=== PATIENT | male | born 1985 | race Caucasian/White ===

== ENCOUNTER 2021-03-06 03:47 | Emergency (ER) | payer OTHER ==
[~2021-03-06] VITALS: Ht 177.8 cm; Wt 68.0 kg
== END 2021-03-06 04:05 | disposition home or self-care (01) ==
LOC: ER 03:47
DX: R05.9 Cough, unspecified (principal); F17.200 Nicotine dependence, unspecified, uncomplicated; Z53.21 Procedure and treatment not carried out due to patient leaving prior to being seen by health care provider
CPT/HCPCS: 99284

== ENCOUNTER 2021-10-15 23:15 | Emergency (ER) | payer OTHER ==
[~2021-10-15] VITALS: Ht 177.8 cm; Wt 68.0 kg
== END 2021-10-16 00:37 | disposition home or self-care (01) ==
LOC: ER 23:15
DX: F10.129 Alcohol abuse with intoxication, unspecified (principal); S01.01XA Laceration without foreign body of scalp, initial encounter; F17.200 Nicotine dependence, unspecified, uncomplicated; W19.XXXA Unspecified fall, initial encounter
CPT/HCPCS: 12001; 70450; 99284-25

== ENCOUNTER 2022-08-27 18:05 | Emergency (ER) | payer OTHER ==
[~2022-08-27] VITALS: Ht 177.8 cm; Wt 68.0 kg
[2022-08-27] MEDS ORDERED: HYDPAM50 PO (20:16)
== END 2022-08-27 20:24 | disposition home or self-care (01) ==
LOC: ER 18:05
DX: F41.9 Anxiety disorder, unspecified (principal); F17.200 Nicotine dependence, unspecified, uncomplicated
CPT/HCPCS: A9270

== ENCOUNTER 2023-02-17 18:06 | Observation (INO) | payer OTHER ==
[~2023-02-17] VITALS: Ht 177.8 cm; Wt 68.0 kg
[~2023-02-17 18:06] MED LIST: HYDPAM50 PO
[2023-02-17 18:21] VITALS: BP 150/99
== END 2023-02-17 20:58 | disposition left against medical advice (07) ==
LOC: ER 18:06 → EOR 18:07
PROVIDERS: ADMIT Emergency Medicine
DX: R45.1 Restlessness and agitation (principal); F32.9 Major depressive disorder, single episode, unspecified; F17.210 Nicotine dependence, cigarettes, uncomplicated; Z53.29 Procedure and treatment not carried out because of patient's decision for other reasons
CPT/HCPCS: 99284